=== PATIENT | female | born 1965 | race Caucasian/White ===

== ENCOUNTER 2018-01-18 10:59 | Emergency (ER) | payer BC ==
[~2018-01-18] VITALS: Ht 177.8 cm; Wt 99.0 kg
[2018-01-18 11:21] VITALS: BP 146/80
[2018-01-18] MEDS ORDERED: ketorolac trometh. 30mg/ml inj. IM ONE (12:05)
[2018-01-18] MEDS ORDERED: ketorolac tromethamine 15mg/ml inj. IM ONE (12:05)
[2018-01-18] MEDS ORDERED: TRAM50TA2 PO (12:29)
== END 2018-01-18 12:43 | disposition home or self-care (01) ==
LOC: ER 11:00
DX: M25.462 Effusion, left knee (principal); M25.562 Pain in left knee; M06.9 Rheumatoid arthritis, unspecified; X50.1XXA Overexertion from prolonged static or awkward postures, initial encounter; Y93.39 Activity, other involving climbing, rappelling and jumping off; Y92.89 Other specified places as the place of occurrence of the external cause; Y99.9 Unspecified external cause status
CPT/HCPCS: 29505; 73564; 96372; 99284; J1885